=== PATIENT | female | born 1990 | race Caucasian/White ===

== ENCOUNTER 2019-09-15 05:27 | Emergency (ER) | payer OTHER ==
[~2019-09-15] VITALS: Ht 172.7 cm; Wt 60.8 kg
[~2019-09-15 05:27] MED LIST: BIRTH CONTROL; FLUR100 PO; HYDACE5 PO; OXYACE5T PO; RANI150 PO
[2019-09-15] MEDS ORDERED: PRED20 (05:50)
[2019-09-15] MEDS ORDERED: PENVK500 (05:50)
[2019-09-15] MEDS ORDERED: CEPH500 PO (06:07)
[2019-09-15] MEDS ORDERED: NYST237S SS (23:12)
== END 2019-09-15 06:32 | disposition home or self-care (01) ==
LOC: ER 05:27
DX: J02.9 Acute pharyngitis, unspecified (principal); I88.9 Nonspecific lymphadenitis, unspecified; Z88.1 Allergy status to other antibiotic agents
CPT/HCPCS: 99282; A9270-GY

== ENCOUNTER 2019-09-15 22:29 | Emergency (ER) | payer OTHER ==
[~2019-09-15] VITALS: Ht 172.7 cm; Wt 61.2 kg
[~2019-09-15 22:29] MED LIST changes: +CEPH500 PO; +PENVK500; +PRED20
[2019-09-15] MEDS ORDERED: NYST237S SS (23:12)
== END 2019-09-15 23:34 | disposition home or self-care (01) ==
LOC: ER 22:29
DX: B37.81 Candidal esophagitis (principal); B37.0 Candidal stomatitis; Z88.1 Allergy status to other antibiotic agents
CPT/HCPCS: 99282

== ENCOUNTER 2021-07-14 20:10 | Emergency (ER) | payer OTHER ==
[~2021-07-14] VITALS: Ht 175.3 cm; Wt 54.4 kg
[~2021-07-14 20:10] MED LIST changes: +NYST237S SS
[2021-07-14] MEDS ORDERED: NALOXONE HC1 MG/1 ML IM (21:06)
[2021-07-14] MEDS ORDERED: NARCAN4 M1 (21:06)
== END 2021-07-14 21:15 | disposition home or self-care (01) ==
LOC: ER 20:10
DX: T40.1X1A Poisoning by heroin, accidental (unintentional), initial encounter (principal); Z88.1 Allergy status to other antibiotic agents
CPT/HCPCS: 99284

== ENCOUNTER 2023-07-03 17:57 | Emergency (ER) | payer OTHER ==
[~2023-07-03] VITALS: Ht 177.8 cm; Wt 52.2 kg
[~2023-07-03 17:57] MED LIST changes: +NALOXONE HC1 MG/1 ML IM; +NARCAN4 M1
[2023-07-03 19:06] LABS: Albumin, Blood 3.7 g/dL (3.4-5.0); Albumin/Globulin Ratio 0.9 (0.8-1.8); Bilirubin, Total 0.2 mg/dL (0.1-1.0); Bun/Creatinine Ratio 20.8 (12.0-20.0); Calcium, Blood 8.8 mg/dL (8.5-10.1); Creatinine, Blood 0.63 mg/dL (0.40-1.00); Globulin, Blood 4.2 g/dL (2.2-4.0); Potassium, Blood 4.2 mmol/L (3.5-5.5); Total Protein, Blood 7.9 g/dL (6.4-8.2)
[2023-07-03 19:49] LABS: BASOPHILS ABSOLUTE AUTO 0.08 K/mm3 (0.00-0.23); BASOPHILS PERCENT AUTO 1 % (0-2); EOSINOPHILS ABSOLUTE AUTO 0.16 K/mm3 (0.00-0.68); EOSINOPHILS PERCENT AUTO 1 % (0-6); Hemoglobin 12.1 g/dL (11.5-16.0); IMMATURE GRAN ABSOLUTE AUTO 0.02 K/mm3 (0.00-0.10); IMMATURE GRAN PERCENT AUTO 0 % (0-1); LYMPHOCYTES ABSOLUTE AUTO 2.66 K/mm3 (0.84-5.20); LYMPHOCYTES PERCENT AUTO 23 % (21-46); MONOCYTES ABSOLUTE AUTO 1.29 K/mm3 (0.16-1.47); MONOCYTES PERCENT AUTO 11 % (4-13); Mean Corpuscular HGB 26.4 pg (26.0-34.0); Mean Corpuscular Volume 85 fL (80-100); Mean Platelet Volume 9.6 fL (9.1-12.4); NEUTROPHILS ABSOLUTE AUTO 7.41 K/mm3 (1.96-9.15); NEUTROPHILS PERCENT AUTO 64 % (41-73); Platelet Count 439 K/mm3 (150-400); RDW Coefficient Variation 14.8 % (11.7-14.2); RDW Standard Deviation 45.4 fL (35.1-46.3); Red Blood Cell Count 4.59 M/mm3 (3.80-5.20); White Blood Cell Count 11.62 K/mm3 (4.00-11.30)
[2023-07-03 20:07] LABS: Source, Urine Clean Catch
[2023-07-03 20:16] LABS: Appearance, Urine Cloudy (Clear); Bilirubin, Urine Neg (Neg); Blood, Urine 2+ (Neg); Color, Urine Yellow (P-Yellow); Glucose Qualitative, Urine Neg (Neg); Ketones, Urine Neg (Neg); Leukocyte Esterase, Urine 2+ (Neg); Nitrite, Urine Pos (Neg); Protein, Urine 1+ (Neg); Urobilinogen, Urine NORM (Normal)
[2023-07-03 20:31] LABS: Bacteria Many /hpf; Red Blood Cells, Urine 0-2 /hpf (0-2); Squamous Epithelial Cells Few /hpf (Few); White Blood Cells, Urine 25-50 /hpf (0-5)
[2023-07-04] MEDS ORDERED: CEPH500 PO (00:54)
[2023-07-04 01:00] VITALS: BP 103/70
== END 2023-07-04 01:10 | disposition home or self-care (01) ==
LOC: ER 17:57
PROVIDERS: Emergency Medicine; Student in an Organized Health Care Education/Training Program
DX: N39.0 Urinary tract infection, site not specified (principal); E86.0 Dehydration; K59.00 Constipation, unspecified; Z88.1 Allergy status to other antibiotic agents
CPT/HCPCS: 74022; 80053; 81001; 81025; 83690; 85025; 96361; 96365; 99284-25; J0696; J7030

== ENCOUNTER 2024-05-07 11:12 | Emergency (ER) | payer OTHER ==
[~2024-05-07] VITALS: Ht 177.8 cm; Wt 54.4 kg
[2024-05-07 11:39] VITALS: BP 114/76
[2024-05-07] MEDS ORDERED: Clindamycin HCl 150 MG Cap PO ONE (12:55)
[2024-05-07] MEDS ORDERED: OXYC5 PO (12:56)
[2024-05-07] MEDS ORDERED: CLIN300 PO (12:56)
== END 2024-05-07 13:07 | disposition home or self-care (01) ==
LOC: ER 11:12
DX: K04.7 Periapical abscess without sinus (principal); F17.200 Nicotine dependence, unspecified, uncomplicated; Z88.1 Allergy status to other antibiotic agents; Z79.899 Other long term (current) drug therapy
CPT/HCPCS: 99282; A9270